=== PATIENT | male | born 1970 | race Two or more races ===

== ENCOUNTER 2025-06-17 17:45 | Emergency (ER) | payer MEDICAID, SELFPAY ==
[2025-06-17 18:05] VITALS: BP 148/85; PULSE 85; RESP 16; TEMP 37.1; O2SAT 99; BMI 28.7
--- NOTE | 2025-06-17 18:37 | XR_ITS ---
Examination: CT lumbar spine., without contrast. 2-D sagittal reconstructions. 2-D coronal reconstructions. 3-D reconstructions. Date and time of exam: June 17, 2025, 1852 hrs. Indication: Back pain 3 days. CTDI: vol (mGy):18.5. DLP: (mGycm):535. Technique: Multiple 1.25 mm axial sections of the lumbar spine without intravenous contrast. have been obtained. 2-D sagittal and coronal reconstructions have been obtained. 3-D reconstructions have been obtained. Low dose protocols were performed. One or more of the following dose reduction techniques were used; automated exposure control, adjustment of the mA and/or KV according to patient size, use of iterative reconstruction technique. Findings: Prominent cortical bone destruction involving contiguous margins L4-L5, L5-S1 with diffuse abnormal sclerosis involving the entire L5 vertebral body Large soft tissue mass surrounding both the L4-L5 and S1 vertebral bodies extending both anterior and posterior The soft tissue mass impinges upon the thecal sac only from the L4 to the S1 level The appearance is consistent with prominent osteomyelitis discitis at these levels No pathologic fracture Grade 1 spondylolisthesis L4 on L5 Impression: Osteomyelitis discitis L4-L5, L5-S1 Recommend MRI lumbar spine follow-up pre and postcontrast
--- NOTE | 2025-06-17 18:47 | XR_ITS ---
Examination: CT chest, without intravenous contrast. CT abdomen, without intravenous contrast. CT pelvis, without intravenous contrast. 2-D sagittal and coronal reconstructions. 3-D reconstructions. Date and time of exam:June 17, 2025, 1852 hrs. Indications: Chest pain back pain beginning 3 days ago CTDI vol (mgy) 7.09. DLP (MGycm)500 Technique: Multiple CT images, 3.0 mm slice thickness, obtained chest, abdomen, pelvis, with the high-resolution 64 slice scanner.. Sagittal and coronal 2-D reconstructions are obtained. 3-D reconstructions Low dose protocols were performed. One or more of the following dose reduction techniques were used; automated exposure control, adjustment of the mA and/or KV according to patient size, use of iterative reconstruction technique. Findings: No thoracic aortic aneurysm dilatation Pulmonary artery segments are not enlarged. Heavy calcification left anterior descending coronary artery. Trace pericardial thickening. No paratracheal tracheobronchial or bronchopulmonary adenopathy. Small focus of pneumonia versus atelectasis in the right middle lobe No liver lesion or intrahepatic biliary tract dilatation Calcification of the wall the gallbladder, gallbladder wall appears mildly thickened No pancreatic or adrenal mass 3.5 cm lower pole right renal cyst 2 mm 1 mm upper pole left renal calculi, hydronephrosis or ureteral calculi Abdominal aorta is not enlarged. No bowel obstruction 23 mm fat-containing umbilical hernia Normal appendix Intact urinary bladder Mild prostatomegaly Marked cortical bone destruction involving contiguous margins L4-L5, L5-S1 with prominent soft tissue mass surrounding these vertebral bodies Impression: Small focus of pneumonia versus atelectasis in the right middle lobe, clinical correlation advised Recommend hepatobiliary sonography to assess the thickened gallbladder wall with calcification in the wall of gallbladder Nonobstructing left renal calculi Normal appendix Prominent osteomyelitis discitis involving L4, L5 and S1, recommend MRI lumbar spine follow-up pre and postcontrast
--- NOTE | 2025-06-17 18:47 | PD.EDBACK ---
ED Back Injury Pain RME/HPI General Chief Complaint: Back Pain/Injury Stated Complaint: BACK PAIN 06/18 Time Seen by Provider: 06/17/25 18:37 Arrival date/time: 06/17/25 17:45 54M with no significant PMH presents to ED with low back pain after he's been lifting something heavy at work. Patient denies fall/trauma, but possible dysuria/hematuria. Patient also notes his ankles are swollen but denies SOB. Limitations: no limitations Related Data Previous Rx's ?Medication ?Instructions ?Recorded ibuprofen 800 mg tablet 800 mg PO Q8H PRN pain #30 tabs 04/12/21 tamsulosin 0.4 mg capsule (Flomax) 0.4 mg PO QDAY #5 caps 04/12/21 Allergies Allergy/AdvReac Type Severity Reaction Status Date / Time No Known Allergies Allergy Verified 06/17/25 17:47 Review of Systems Review of Systems Systems Reviewed: All systems reviewed, normal except as documented Cardiovascular Cardiovascular: Reports system reviewed and no additional complaints, except as documented and Denies chest pain Genitourinary Genitourinary: Reports as per HPI and Reports dysuria Musculoskeletal Musculoskeletal: Reports as per HPI and Reports back pain Integumentary/Breasts Skin/Breast: Reports as per HPI and Reports skin swelling Past Medical History Past Medical History CARDIAC: Negative Congestive Heart Failure RESPIRATORY: Negative Chronic Obstructive Pulmonary Disease (COPD) GENITOURINARY: Negative Renal Disease ENDOCRINE: Negative Diabetes Mellitus Type 1 or Diabetes Mellitus Type 2 Social History SMOKING STATUS: Never smoker ED Exam General Limitations: Present no limitations General appearance: Present alert and in no apparent distress Head Head exam: Present atraumatic Neck Neck exam: Present normal inspection, full ROM and trachea midline Chest Chest inspection: Present normal inspection and symmetric chest wall rise Expanded Lower Extremity Exam Ankle exam: Present full ROM and swelling Back Exam Back exam: Absent full ROM or tenderness Neurological Exam Neurological exam: Present alert, oriented X3 and CN II-XII intact Psychiatric Psychiatric exam: Present normal affect and normal mood Skin Skin exam: Present warm, dry, intact and normal color Course Quality Measures none Orders Category Date Time Status Bedside COVID-19 Antigen Test NOW Care 06/17/25 20:56 Active COVID-19 Screening Questionnaire NOW Care 06/17/25 20:29 Active Decision to Admit X1 Care 06/17/25 20:29 Completed Macdonald [Urinary Catheter] NOW Care 06/18/25 14:38 Active Insert IV NOW Care 06/17/25 20:29 Active MRI Screening NOW Care 06/17/25 21:01 Active Referral - Electric Distribution Engineer Stat Cons 06/18/25 11:[address] chest abdomen pelvis wo Stat Exams 06/17/25 18:[address] lumbar spine wo con Stat Exams 06/17/25 18:37 Completed MR lumbar spine wo/w con Stat Exams 06/18/25 Completed Amylase Stat Lab 06/17/25 19:13 Completed BMP [Basic Metabolic Panel] Stat Lab 06/18/25 00:09 Completed BNP [B-Type Natriuretic Peptide] Stat Lab 06/17/25 19:13 Completed Blood Culture (Lab) Stat Lab 06/17/25 21:12 Received CBC Stat Lab 06/17/25 19:13 Completed CMP [Comprehensive Metabolic Panel] Stat Lab 06/17/25 19:13 Completed CRP [C-Reactive Protein] Stat Lab 06/18/25 00:40 Completed Drug Screen,Urine Stat Lab 06/17/25 19:10 Completed ESR [Sed Rate (ESR)] Stat Lab 06/18/25 00:40 Completed Lactate (Lactic Acid) Stat Lab 06/18/25 00:40 Completed Procalcitonin Stat Lab 06/18/25 00:40 Completed Troponin I Stat Lab 06/17/25 19:13 Completed Urinalysis, C/S if Indicated Stat Lab 06/17/25 19:10 Completed Acetaminophen Ivpb [Ofirmev Inj] Med 06/18/25 11:55 Discontinued 1,000 mg in 100 ml IV NOW CIPROFLOXACIN/D5w 400 MG IVPB [Cipro Ivpb] Med 06/17/25 21:06 Active 400 mg in 200 ml IV Q12HR HYDROmorphone INJ [Dilaudid Inj] Med 06/18/25 11:54 Discontinued 1 mg IVP X1 ONE Morphine Oral LIQUID Med 06/17/25 18:37 Discontinued 5 mg PO X1 ONE Morphine* Inj Med 06/18/25 09:21 Discontinued 4 mg IVP X1 ONE Morphine* Inj Med 06/17/25 23:52 Active 5 mg IVP Q6H PRN Ondansetron Inj [Zofran Inj] Med 06/17/25 23:52 Active 4 mg IV Q6H PRN Ringers Lactated 1000 ml [Lactated Ringers] 1,000 ml Med 06/18/25 00:36 Discontinued IV 125 mls/hr Sodium Chloride 0.9% 1000 ml [Ns] 1,000 ml Med 06/17/25 22:05 Discontinued IV 500 mls/hr Sodium Chloride 0.9% 1000 ml [Ns] 1,000 ml Med 06/17/25 21:00 Discontinued IV 999 mls/hr Vancomycin Inj 2,000 mg Med 06/17/25 21:00 Discontinued Sodium Chloride 0.9% 500 ml [Ns] 500 ml IV X1 metroNIDAZOLE/NS 500 MG IVPB [Flagyl 500 mg IV] Med 06/18/25 09:22 Discontinued 500 mg in 100 ml IV X1 Vital Signs Vital signs: Vital Signs Temperature 98.8 F 06/17/25 18:05 Pulse Rate 85 06/17/25 18:05 Respiratory Rate 16 06/17/25 18:05 Blood Pressure 148/85 H 06/17/25 18:05 Pulse Oximetry (%) 99 06/17/25 18:05 Oxygen Delivery Method Room Air 06/17/25 18:05 O2 at 99% on RA and WNLs Back Pain / Injury MDM Narrative MDM Narrative:: 54M with no significant PMH presents to ED with low back pain after he's been lifting something heavy at work. Patient denies fall/trauma, but possible dysuria/hematuria. Patient also notes his ankles are swollen but denies SOB. Patient denies bowel/bladder incontinence and saddle anesthesia. Physical exam reveals no back tenderness. Pain is with ROM, which is limited. Some ankle swelling, but normal WOB. Patient is able to lift both legs while lyign down. Patient is afebrile, alert, but appears to be in pain. CT reveals lumbar discitis w/ surrounding soft tissue swelling. Moderate leukocytosis. CMP remarkable for Cr 1.9. Meth positive. BNP/trop neg. ESR/CRP elevated. Procal/lactate normal. Repeat BMP showed Cr of 1.7. Spoke to IM Resident who reports to Dr. Castro, who wants MRI prior to admission b/c if abscess, may need to transfer. Care signed out to Dr. Summers pending MRI and dispo. Eventually, patient found to have small epidural abscess and was transferred to [facility]. Patient data External records reviewed:: [facility] previous records Clinical information provided by:: patient Social determinants that could affect healthcare access:: none Patient has the following chronic illnesses:: none How is presenting disease/condition affected by chronic disease/condition?: no chronic disease Evaluation data The following diagnostics were reviewed and interpreted by me:: lab results and radiology exam(s) Lab and/or radiology exams considered but not ordered:: ordered Interpretation Summary: above Medications / Prescriptions Medications or Prescriptions considered but not ordered:: ordered Medication administrations:: Medication Administration History Ciprofloxacin/Dextrose (Cipro Ivpb) 400 mg in 200 mls @ 200 mls/hr IV Q12HR GÉNESIS Stop: 06/24/25 21:05 Last Infusion: 06/18/25 10:31 Dose: Infused Documented By: Admin: 06/18/25 09:31 Dose: 200 mls/hr Documented By: Infusion: 06/17/25 22:33 Dose: Infused Documented By: Admin: 06/17/25 21:23 Dose: 200 mls/hr Documented By: SUELLEN Morphine Sulfate (Morphine Sulf Inj 4 Mg/Ml Vial) 5 mg IVP Q6H PRN PRN Reason: PAIN 1-10 Last Admin: 06/18/25 00:04 Dose: 5 mg Documented By: SUELLEN Ondansetron HCl (Ondansetron Inj 2 Mg/Ml Inj 2 Ml) 4 mg IV Q6H PRN; Protocol PRN Reason: nausea and vomiting Stop: 07/17/25 23:44 Discontinued Medications Hydromorphone HCl (Hydromorphone Inj 2 Mg/Ml Vial) 1 mg IVP X1 ONE Stop: 06/18/25 11:55 Last Admin: 06/18/25 12:25 Dose: 1 mg Documented By: JEANE Sodium Chloride (Ns) 1,000 mls @ 999 mls/hr IV .Q1H1M ONE Stop: 06/17/25 22:00 Last Infusion: 06/17/25 22:34 Dose: Infused Documented By: Admin: 06/17/25 21:15 Dose: 999 mls/hr Documented By: SUELLEN Vancomycin HCl 2,000 mg/ (Sodium Chloride) 500 mls @ 150 mls/hr IV X1 ONE Stop: 06/18/25 00:19 Last Infusion: 06/18/25 01:54 Dose: Infused Documented By: Admin: 06/17/25 22:34 Dose: 150 mls/hr Documented By: BRI Sodium Chloride (Ns) 1,000 mls @ 500 mls/hr IV .Q2H ONE Stop: 06/18/25 00:04 Last Infusion: 06/18/25 00:36 Dose: Infused Documented By: Admin: 06/17/25 22:36 Dose: 500 mls/hr Documented By: BRI Lactated Ringer's (Lactated Ringers) 1,000 mls @ 125 mls/hr IV .Q8H ONE Stop: 06/18/25 08:35 Last Infusion: 06/18/25 09:20 Dose: Infused Documented By: Admin: 06/18/25 01:20 Dose: 125 mls/hr Documented By: SUELLEN Metronidazole (Flagyl 500 Mg Iv) 500 mg in 100 mls @ 100 mls/hr IV X1 ONE Stop: 06/18/25 10:21 Last Infusion: 06/18/25 12:03 Dose: Infused Documented By: Admin: 06/18/25 11:03 Dose: 100 mls/hr Documented By: JEANE Acetaminophen (Ofirmev Inj) 1,000 mg in 100 mls @ 250 mls/hr IV NOW ONE Stop: 06/18/25 12:18 Last Infusion: 06/18/25 12:50 Dose: Infused Documented By: Admin: 06/18/25 12:26 Dose: 250 mls/hr Documented By: TM Morphine Sulfate (Morphine Sulf Liqd 10 Mg/5 Ml Udc) 5 mg PO X1 ONE Stop: 06/17/25 18:38 Last Admin: 06/17/25 19:10 Dose: 5 mg Documented By: OA Morphine Sulfate (Morphine Sulf Inj 4 Mg/Ml Vial) 4 mg IVP X1 ONE Stop: 06/18/25 09:22 Last Admin: 06/18/25 09:25 Dose: 4 mg Documented By: TM above Consultations Consultation(s) initiated? (list below): Yes Diagnosis Differential diagnosis back pain/injury: lumbar radiculopathy, sciatica, strain of lumbar region, renal colic, pyelonephritis, thoracic back pain, AAA, discitis and other (epidural abscess) Most likely diagnosis given after review of the tests above:: discitis and epidural abscess Admission Indicated Admission indicated?: indicated Admission Request Was there a request for admission?: Yes Admission Attestation Admission request attestation: Discussed case with [Dr. Castro] from Hospitalist service regarding admission. Discussed patients ED course, exam findings, labs, and radiology results. The Hospitalist [declines] to accept the patient for admission. Disposition Plan Disposition Plan: Transfer Discharge Plan Plan Patient Disposition: [facility] Pt Being Transferred to: [facility] Service Needed for Transfer: Neurosurgery Prescriptions/Referrals Prescriptions/Med Rec: No Action tamsulosin [Flomax] 0.4 mg capsule 0.4 mg PO QDAY Qty: 5 0RF ibuprofen 800 mg tablet 800 mg PO Q8H PRN (Reason: pain) Qty: 30 0RF Referrals: Zack Adams PA-C [Primary Care Provider] - In 1 week Problem List Clinical Impression: Osteomyelitis of lumbar spine, Discitis of lumbar region, Abscess in epidural space of lumbar spine, Renal insufficiency, Methamphetamine abuse Patient/Caregiver Discharge Instructions Print Language: Amharic Stand Alone Forms: Kristi Award Info., Patient Portal Info Letter
[2025-06-17] MEDS: MORPHINE SULF LIQD 10 MG/5 ML UDC 5 MG PO (19:10)
[2025-06-17 19:23] LABS: Collection Type, Urine Clean Catch
[2025-06-17 19:34] LABS: Basophils # (Auto) 0.1 Thou/mm3 (0.0-0.2); Basophils % (Auto) 0 % (0-2.5); Eosinophils # (Auto) 0.1 Thou/mm3 (0.0-0.5); Eosinophils % (Auto) 1 % (0-10); Hematocrit 34.8 % (41.0-53.0); Hemoglobin 11.1 g/dL (13.5-16.0); Immature Granulocytes Auto 0.05 Thou/mm3 (0.00-0.00); Lymphocytes # (Auto) 2.4 Thou/mm3 (1.0-4.8); Lymphocytes % (Auto) 16 % (10-50); Mean Corpuscular HGB Conc 31.9 g/dl (31.0-37.0); Mean Corpuscular Hemoglobin 26.8 pg (25.0-35.0); Mean Corpuscular Volume 84 fL (80-100); Monocytes # (Auto) 1.5 Thou/mm3 (0.0-0.8); Monocytes % (Auto) 10 % (0-12); Neutrophils # (Auto) 11.2 Thou/mm3 (1.8-7.7); Neutrophils % (Auto) 73 % (37-80); Nucleated Red Blood Cell # 0.00 Thou/mm3 (0.00-0.00); Nucleated Red Blood Cell % 0 /100 WBC (0); Platelet Count 353 Thou/mm3 (140-440); RDW Standard Deviation 42.9 fL (35.1-43.9); Red Blood Count 4.14 Miln/mm3 (4.50-5.90); White Blood Count 15.3 Thou/mm3 (3.8-10.6)
[2025-06-17 19:41] LABS: B-Type Natriuretic Peptide 33 pg/mL (0-100)
[2025-06-17 19:42] LABS: Alanine Aminotransferase 23 U/L (10-49); Albumin, Serum 4.4 gm/dL (3.5-5.0); Albumin/Globulin Ratio 1.3 (1.2-2.2); Alkaline Phosphatase 110 U/L (46-116); Amylase 129 U/L (30-118); Anion Gap 12 (7-16); Aspartate Amino Transferase 23 U/L (0-34); BUN/Creatinine Ratio 10 Ratio (12-20); Bilirubin,Total 0.7 mg/dL (0.3-1.2); Blood Urea Nitrogen 19 mg/dL (9-23); Calcium 9.7 mg/dL (8.3-10.6); Calcium (Corrected) 9.7 mg/dL (8.5-10.1); Carbon Dioxide 27.4 mMol/L (20.0-31.0); Chloride 99 mMol/L (98-107); Creatinine (Component) 1.9 mg/dL (0.6-1.3); Estimated Creatinine Clearance 39.0 mL/min (>60); Globulin 3.3 gm/dL (2.3-3.5); Glucose 114 mg/dL (74-106); Osmolality,Calculated 278 (275-295); Potassium 4.3 mMol/L (3.4-5.1); Sodium 138 mMol/L (136-145); Total Protein 7.7 gm/dL (5.7-8.2); Troponin I < 0.020 ng/mL (0.0-0.045); eGFR 41 See Note
[2025-06-17 20:05] LABS: Amphetamine/Methamp Scrn,U Positive (Negative); Barbiturate Screen,Urine Negative (Negative); Benzodiazepines Screen,Urine Negative (Negative); Benzoylecgonine Screen, Ur Negative (Negative); Fentanyl Screen,Urine Negative (Negative); Opiate Screen,Urine Negative (Negative); THC Screen,Urine Negative (Negative)
[2025-06-17 20:10] LABS: Bilirubin,Urine Negative (Negative); Blood,Urine Trace (Negative); Clarity,Urine Clear (Clear/Hazy); Color,Urine Yellow (Lt Yel-Yel); Culture Indicated,Urine Not Indicated; Glucose, Urine Negative (Negative); Hyaline Casts,Urine < 1 /hpf (0-1); Ketones,Urine Negative (Negative); Leukocyte Esterase,Urine Negative (Negative); Nitrite,Urine Negative (Negative); PH,Urine 6.0 (5.0-7.0); Protein,Urine 1+ (Neg - Trace); RBC,Urine 2 /hpf (0-3); Specific Gravity,Urine 1.023 (1.001-1.035); Squamous Epithelial Cell,Urine 1 /hpf (0-5); Urobilinogen,Urine Negative mg/dL (0.0-1.0); WBC,Urine 5 /hpf (0-5)
[2025-06-17 20:12] LABS: Sperm,Urine Present
[2025-06-17 20:56] VITALS: BP 175/86; PULSE 85; RESP 19; TEMP 37.2; O2SAT 98
[2025-06-17] MEDS: SODIUM CHLORIDE 0.9% 1000 ML 1,000 ML 999 ML IV (21:15)
[2025-06-17] MEDS: CIPROFLOXACIN/D5w 400 MG IVPB 400 MG/200 ML BAG 200 MG IV (21:23)
[2025-06-17 22:00] VITALS: BP 155/84; PULSE 83; RESP 18; TEMP 36.9; O2SAT 98
[2025-06-17] MEDS: Vancomycin Inj 2,000 MG in SODIUM CHLORIDE 0.9% 500 ML 500 ML 150 MG IV (22:34)
[2025-06-17] MEDS: SODIUM CHLORIDE 0.9% 1000 ML 1,000 ML 500 ML IV (22:36)
[2025-06-17 23:44] VITALS: BP 137/69; PULSE 79; RESP 18; TEMP 36.9; O2SAT 98
[2025-06-18] VITALS (7 sets, daily range): BP systolic 109–164; BP diastolic 70–84; PULSE 69–83; RESP 15–24; TEMP 36.5–37.7; O2SAT 96–98
--- NOTE | 2025-06-18 | XR_ITS ---
Examination: MRI lumbar spine, without intravenous contrast. MRI lumbar spine , with intravenous contrast. Exam date and time: June 18, 2025, 0959 hours INDICATIONS: Low back pain this week, osteomyelitis discitis L4-L5, L5-S1 CT lumbar spine study yesterday Technique: Multiple axial, sagittal and coronal images of the lumbar spine have been obtained with the Siemens high-resolution 1.5 Areli MRI scanner. Images obtained included T2 weighted fat suppressed sagittal sections, TR 3500, TE 46, T2 weighted coronal fat suppressed images, TR 3050, TE 84, T2-weighted transverse fat suppressed images, TR 30-60, TE 63, proton density transverse images, TR 4720, TE 46, and T1 weighted coronal images, TR 560, TE 13. Axial, sagittal and coronal images are obtained post intravenous injection 5 cc gadolinium. Findings: Grade 1 anterolisthesis L4 on L5 Advanced disc narrowing L4-L5, L5-S1 Postcontrast images demonstrate mild enhancement of the L4 vertebral body and L4-L5 disc More prominent enhancement involving the L5-S1 disc and upper margin of the first sacral segment Enhancing epidural material, sagittal image 8, partially surrounding the thecal sac, the epidural material measuring up to 12 mm in thickness posterior to the L5 vertebral body consistent with epidural abscess Soft tissue mass surrounding the L5 and L4 vertebral bodies IMPRESSION: Discitis L4-L5 Osteomyelitis discitis L5-S1 Epidural abscess formation surrounding the thecal sac at the L5 level
[2025-06-18] MEDS: MORPHINE SULF INJ 4 MG/ML VIAL 5 MG IVP (00:04)
[2025-06-18 00:33] LABS: Anion Gap 9 (7-16); BUN/Creatinine Ratio 9 Ratio (12-20); Blood Urea Nitrogen 15 mg/dL (9-23); Calcium 8.7 mg/dL (8.3-10.6); Carbon Dioxide 28.0 mMol/L (20.0-31.0); Chloride 105 mMol/L (98-107); Creatinine (Component) 1.7 mg/dL (0.6-1.3); Estimated Creatinine Clearance 43.6 mL/min (>60); Glucose 108 mg/dL (74-106); Osmolality,Calculated 284 (275-295); Potassium 4.3 mMol/L (3.4-5.1); Sodium 142 mMol/L (136-145); eGFR 47 See Note
[2025-06-18 00:47] LABS: Lactate (Lactic Acid) 0.6 mMol/L (0.4-2.0)
[2025-06-18 00:55] LABS: Sed Rate (ESR) 44 mm/hr (0-20)
[2025-06-18 01:16] LABS: C-Reactive Protein 6.4 mg/dL (0.0-0.9); Procalcitonin 0.14 ng/ml (0.0-0.49)
[2025-06-18] MEDS: RINGERS LACTATED 1000 ML 1,000 ML 125 ML IV (01:20)
--- NOTE | 2025-06-18 07:53 | PC.NURSE ---
Spoke w/MD Summers about pts MRI. This RN received a call from MRI to inform pts CT to high can only do MRI w/o contrast
--- NOTE | 2025-06-18 08:36 | PD.EDADDENDU ---
Emergency Room Addendum Addendum Narrative: This section includes all my notes and documentations, including HPI, PE, and ED course. Quique Summers MD ? 0600: Care assumed from Dr. Che, the previous shift emergency physician. Past medical, surgical, social and family history reviewed. Vitals and home medications reviewed. I will assume the care of the patient at this time, pending MRI and final disposition. Please refer to the emergency department record for history and examination from initial visit.?The following addendum documentation note is intended to reflect any pending information, findings, or radiology results not included in the patient?s initial chart. I reviewed all diagnostic test results: My review of the lumbar spine CT report is: Bony destruction of L5 and S1 My review of the chest/abdomen/pelvis CT report is: Grossly normal My review of the lubar spine MRI report is: Bony destruction of L5 and S1 Blood tests and urine test: Leukocytosis 15.3, creatinine 1.7, eGFR 47 Covid: Negative 0820: I spoke with radiologist Dr. Zhang regarding the creatinine and eGFR levels. Reports we can proceed imaging studied with con. 0825: I spoke with respiratory support technician and made aware of Dr. Smith's clearance 1145: I spoke with transfer nurse at [facility]. Discussed patients PMHx, HPI, ED course, exam findings, labs, and radiology results. 1417: [facility] has accepted the patient for transfer, ER to ER. At this point, diagnoses include: Osteomyelitis of L5 S1, discitis L4-L5, lumbar epidural abscess, renal insufficiency, methamphetamine abuse ? Treatment here included: Morphine, IV fluids, Ciprofloxacin, Vancomycin, Reglan, Dilaudid, Tylenol 1800: Patient signed out to Dr. Che pending transfer to [facility].
[2025-06-18] MEDS: MORPHINE SULF INJ 4 MG/ML VIAL IVP (09:25)
[2025-06-18] MEDS: CIPROFLOXACIN/D5w 400 MG IVPB 400 MG/200 ML BAG 200 MG IV (09:31)
[2025-06-18] MEDS: metroNIDAZOLE/NS 500 MG IVPB 500 MG/100 ML BAG 100 MG IV (11:03)
[2025-06-18] MEDS: HYDROmorphone INJ 2 MG/ML VIAL 1 MG IVP (12:25)
[2025-06-18] MEDS: ACETAMINOPHEN IVPB 1,000 MG/100 ML VIAL 250 MG IV (12:26)
--- NOTE | 2025-06-18 13:31 | PC.CM ---
Addendum entered by Erin Pandya RN 06/18/25 16:44: cupola liner time with [facility] set for 1930. I updated the charge nurse. Addendum entered by Erin Pandya RN 06/18/25 15:46: Patient accepted to [facility] with Dr. Aragon ED to ED. The number to call and give report [phone]. I will set up transport. I handed packet to ED charge nurse. Original Note: 7062 I spoke to Pam with the transfer center at [facility]. She wanted to speak to the doctor. I did a conference call with Dr. Summers and Pam. Pam took information from Dr. Summers and she states she will have her doctor review the paperwork that was sent and have her doctor review the images that were pushed over. 1250 I initiated a transfer with [facility] and I faxed over images and started packet. I made a CD. 1230 I received a referral to transfer patient for neurosurgery. Patient has a epidural abscess at L5.
== END 2025-06-18 19:47 | disposition short-term general hospital (02) ==
PROVIDERS: Physician Assistant; Emergency Provider Emergency Medicine; PCP Physician Assistant
DX: M46.26 Osteomyelitis of vertebra, lumbar region (principal); N28.9 Disorder of kidney and ureter, unspecified; F15.10 Other stimulant abuse, uncomplicated; G06.2 Extradural and subdural abscess, unspecified
CPT/HCPCS: 36415; 71250; 72131; 72158; 74176; 80048; 80053; 80307; 81001; 82150; 83605; 83690; 83880; 84145; 84484; 85025; 85652; 86140; 87040; 87811; 96361; 96365; 96366; 96375; 96376; 99284; A4314; A9577; J0131; J0744; J1171; J2270; J3373; J3490; J7030; J7120; J7999; A9270; J1836

== ENCOUNTER 2025-06-27 15:21 | Observation (INO) | payer MEDICAID, SELFPAY ==
[2025-06-26 18:15] VITALS: BMI 26.6
[2025-06-26 18:20] LABS: Basophils # (Auto) 0.1 Thou/mm3 (0.0-0.2); Basophils % (Auto) 1 % (0-2.5); Eosinophils # (Auto) 0.2 Thou/mm3 (0.0-0.5); Eosinophils % (Auto) 2 % (0-10); Hematocrit 29.8 % (41.0-53.0); Hemoglobin 9.5 g/dL (13.5-16.0); Immature Granulocytes Auto 0.04 Thou/mm3 (0.00-0.00); Lymphocytes # (Auto) 2.3 Thou/mm3 (1.0-4.8); Lymphocytes % (Auto) 23 % (10-50); Mean Corpuscular HGB Conc 31.9 g/dl (31.0-37.0); Mean Corpuscular Hemoglobin 26.9 pg (25.0-35.0); Mean Corpuscular Volume 84 fL (80-100); Monocytes # (Auto) 0.8 Thou/mm3 (0.0-0.8); Monocytes % (Auto) 8 % (0-12); Neutrophils # (Auto) 6.6 Thou/mm3 (1.8-7.7); Neutrophils % (Auto) 66 % (37-80); Nucleated Red Blood Cell # 0.00 Thou/mm3 (0.00-0.00); Nucleated Red Blood Cell % 0 /100 WBC (0); Platelet Count 402 Thou/mm3 (140-440); RDW Standard Deviation 43.0 fL (35.1-43.9); Red Blood Count 3.53 Miln/mm3 (4.50-5.90); White Blood Count 10.0 Thou/mm3 (3.8-10.6)
--- NOTE | 2025-06-26 18:22 | PD.RESHP ---
Documentation for date of: 06/26/25 HPI History of Present Illness Chief complaint: Back pain History of present illness: 54 year old male with past medical history of chronic back pain, hypertension, CKD, BPH, polysubstance use disorder presenting to [facility] after he was transferred from the ED to [facility] for epidural abscess and discitis of the L5-S1 region. Patient is transferring back from tertiary center as he is currently stable. There was no IR guided drainage of the abscess as the following was unsuccessful; furthermore, patient remained afebrile without neurological deficits during stay. [facility] ID provider was also consulted for antibiotic regimen; however, recommended against the following as the patient remained asymptomatic during stay. There was some concern for TB secondary to Quantiferon and xray findings; however, diagnosis of latent TB was made as the patient's AFB send outs were negative. Exam Narrative Exam Physical Exam: GENERAL: Awake, answering questions appropriately, appears stated age HEENT: NC/AT. Moist mucosa. PERRLA/EOMI. CARDIO: Heart RRR, no obvious murmurs, no JVD. PULM: No coughing or visible SOB. Lungs CTA B/L. GI: Abdomen soft, NT/ND, +BS. SKIN/MSK/EXT: No wounds/discoloration/rashes/edema/amputations. +Pedal pulses present B/L. NEURO: Oriented x3, Moves extremities x4, no focal neurological deficits. Results: Labs 06/27/25 04:37 06/27/25 04:37 Quality Measures Quality Measures VTE prophylaxis Medications Home Medications and Allergies Home Medications ?Medication ?Instructions ?Recorded ?Confirmed ?Type aspirin 81 mg tablet,delayed 81 mg PO DAILY 06/26/25 06/26/25 History release atorvastatin 20 mg tablet 20 mg PO DAILY 06/26/25 06/26/25 History cholecalciferol (vitamin D3) 125 125 mcg PO QDAY 06/26/25 06/26/25 History mcg (5,000 unit) capsule hydralazine 10 mg tablet 10 mg PO TID 06/26/25 06/26/25 History nifedipine 60 mg tablet,extended 60 mg PO DAILY 06/26/25 06/26/25 History release 24 hr Allergies Allergy/AdvReac Type Severity Reaction Status Date / Time No Known Allergies Allergy Verified 06/17/25 17:47 Visit Medications Acetaminophen (Acetaminophen 325 Mg Tablet) 650 mg PO Q6H PRN PRN Reason: Pain 1-3 and/or Fever >100.1 Stop: 07/26/25 18:17 Hydrocodone Bitart/Acetaminophen (Hydrocodone/Apap 5/325 Tablet) 1 tab PO Q6HR PRN PRN Reason: Pain 4-6 Stop: 07/01/25 18:17 Hydrocodone Bitart/Acetaminophen (Hydrocodone/Apap 10/325 Tab) 1 tab PO Q6HR PRN PRN Reason: Pain 7-10 Stop: 07/01/25 18:17 Heparin Sodium (Porcine) (Heparin Sod Inj 5000 Unit/Ml Vial) 5,000 unit SC Q12HR GÉNESIS Stop: 07/10/25 20:59 Hydralazine HCl (Hydralazine Hcl 10 Mg Tablet) 10 mg PO TID GÉNESIS Stop: 07/26/25 21:59 Nifedipine (Nifedipine Xl 30 Mg Tabcr) 60 mg PO QDAY GÉNESIS Stop: 07/27/25 08:59 Ondansetron HCl (Ondansetron Inj 2 Mg/Ml Inj 2 Ml) 4 mg IVP Q6H PRN; Protocol PRN Reason: NAUSEA OR VOMITING Stop: 07/26/25 18:17 Sennosides (Senna Tablet) 1 tab PO QDAY GÉNESIS; Protocol Stop: 07/27/25 08:59 Assessment & Plan Plan 54 year old male with past medical history of chronic back pain, hypertension, CKD, BPH, polysubstance use disorder transferring back from [facility] following diagnosis of L5-S1 discitis and abscess. #Osteomyelitis of lumbar spine #Psoas muscle abscess? MR of spine on 06/22 showed extensive circumfrential epidural enhancement; anterior paracentral space There is also mention of psoas muscle abscess Patient remained aferbile and without leukocytosis at [facility], CRP 39 and ESR of 100 Negative for HIV, hepatitis panel and blood cultures Disc biopsy on 06/19 was negative for any growth, pathology read: focal necrosis with no acute inflammation Neurosurgery was consulted at [facility] but due to non-focal exam no surgery was planned ID was consulted at [facility] which did not recommend antibiotic regimen Pending orders for karius test , cocci and 16s/18sRNA ordered as per ID recommendations Plan: Physical therapy consultation Monitor for any changes in vitals, leukocytosis or neurological findings including (urinary/fecal incontinence, parasthesias, sphincter tone or other sensory/motor dysfunctions) #TB, latent As noted by positive Quantiferon and Xray findings Send out AFBs were negative Plan: Monitor for any changes #CKD stage IIIb Likely secondary to hypertensive nephropathy Plan: Monitor kidney function with morning labs Avoid nephrotoxic agents Renally dose medications as warranted Could benefit from outpatient nephrology #Polysubstance-use disorder Drug screen positive for meth at [facility] Plan: [place] on cessation commissioner of relocation services consultation #Primary hypertension Patient on home Nifedipine 60mg and Hydralazine 10 mg TID Plan: Restarted home medications #Normocytic Anemia Likely secondary to chronic disease, CKD Ddx: HARLEY, Vitamin deficiency, less likely to be bone marrow disorder or hemolytic anemia Plan: Follow-up with morning iron panel and reticulocyte count Health Maintenance: Lines: PIV Diet: Cardiac Bowel: Senna GI prophylaxis: Not needed DVT prophylaxis: Hep subq Dispo: PT eval, home health Code: Full Patient seen and assessed with attending Dr. Toby Gonzalez DO PGY-2 Attending Provider Attestation/Addendum I have examined the patient, reviewed labs and imaging findings, discussed the case with the resident(s), and reviewed entered orders. I agree with the plan of care as outlined in this note, with these additional summaries/recommendations: After examination of the patient and review of the clinical data, I feel that this patient needs admission to the hospital for further treatment and evaluation. Dr. Toby MD
[2025-06-26 18:39] LABS: Alanine Aminotransferase 38 U/L (10-49); Albumin, Serum 3.9 gm/dL (3.5-5.0); Albumin/Globulin Ratio 1.2 (1.2-2.2); Alkaline Phosphatase 118 U/L (46-116); Anion Gap 9 (7-16); Aspartate Amino Transferase 26 U/L (0-34); BUN/Creatinine Ratio 13 Ratio (12-20); Bilirubin,Total 0.3 mg/dL (0.3-1.2); Blood Urea Nitrogen 19 mg/dL (9-23); Calcium 9.5 mg/dL (8.3-10.6); Calcium (Corrected) 9.6 mg/dL (8.5-10.1); Carbon Dioxide 27.1 mMol/L (20.0-31.0); Chloride 105 mMol/L (98-107); Creatinine (Component) 1.5 mg/dL (0.6-1.3); Globulin 3.2 gm/dL (2.3-3.5); Glucose 100 mg/dL (74-106); Osmolality,Calculated 283 (275-295); Potassium 4.3 mMol/L (3.4-5.1); Sodium 141 mMol/L (136-145); Total Protein 7.1 gm/dL (5.7-8.2); eGFR 54 See Note
[2025-06-26 20:00] VITALS: BP 129/88; PULSE 108; RESP 18; TEMP 36.7; O2SAT 98
[2025-06-26] MEDS: HEPARIN SOD INJ 5000 UNIT/ML VIAL SC (20:57)
[2025-06-26 21:00] VITALS: BP 129/88; PULSE 108
[2025-06-26] MEDS: HYDROcodone/APAP 5/325 TABLET 1 TAB PO (21:01)
[2025-06-27] VITALS (10 sets, daily range): BP systolic 128–164; BP diastolic 76–91; PULSE 66–82; RESP 16–20; TEMP 36.1–36.9; O2SAT 96–100
[2025-06-27 06:12] LABS: Basophils # (Auto) 0.1 Thou/mm3 (0.0-0.2); Basophils % (Auto) 1 % (0-2.5); Eosinophils # (Auto) 0.2 Thou/mm3 (0.0-0.5); Eosinophils % (Auto) 3 % (0-10); Hematocrit 31.0 % (41.0-53.0); Hemoglobin 9.8 g/dL (13.5-16.0); Immature Granulocytes Auto 0.04 Thou/mm3 (0.00-0.00); Immature Reticulocyte Fraction 17.9 % (2.3-13.4); Lymphocytes # (Auto) 2.4 Thou/mm3 (1.0-4.8); Lymphocytes % (Auto) 28 % (10-50); Mean Corpuscular HGB Conc 31.6 g/dl (31.0-37.0); Mean Corpuscular Hemoglobin 27.0 pg (25.0-35.0); Mean Corpuscular Volume 85 fL (80-100); Monocytes # (Auto) 0.7 Thou/mm3 (0.0-0.8); Monocytes % (Auto) 8 % (0-12); Neutrophils # (Auto) 5.3 Thou/mm3 (1.8-7.7); Neutrophils % (Auto) 60 % (37-80); Nucleated Red Blood Cell # 0.00 Thou/mm3 (0.00-0.00); Nucleated Red Blood Cell % 0 /100 WBC (0); Platelet Count 389 Thou/mm3 (140-440); RDW Standard Deviation 43.9 fL (35.1-43.9); Red Blood Count 3.63 Miln/mm3 (4.50-5.90); Reticulocyte % (Auto) 2.1 % (0.5-1.5); Reticulocyte Absolute Auto 76.2 Biln/L (25.0-75.0); Reticulocyte Hgb Content 28.1 pg (28.0-35.0); White Blood Count 8.8 Thou/mm3 (3.8-10.6)
[2025-06-27 06:31] LABS: Ferritin 82 ng/mL (10.5-307.3); Iron 30 mcg/dL (65-175); Percent Iron Saturation 10 % (20-55); Total Iron Binding Capacity 281 mcg/dL (250-425); Unsaturated Iron Binding 251 (225-295)
[2025-06-27 06:33] LABS: Alanine Aminotransferase 34 U/L (10-49); Albumin, Serum 4.0 gm/dL (3.5-5.0); Albumin/Globulin Ratio 1.4 (1.2-2.2); Alkaline Phosphatase 116 U/L (46-116); Anion Gap 8 (7-16); Aspartate Amino Transferase 22 U/L (0-34); BUN/Creatinine Ratio 14 Ratio (12-20); Bilirubin,Total 0.3 mg/dL (0.3-1.2); Blood Urea Nitrogen 21 mg/dL (9-23); Calcium 9.8 mg/dL (8.3-10.6); Calcium (Corrected) 9.8 mg/dL (8.5-10.1); Carbon Dioxide 28.6 mMol/L (20.0-31.0); Chloride 106 mMol/L (98-107); Creatinine (Component) 1.5 mg/dL (0.6-1.3); Globulin 2.9 gm/dL (2.3-3.5); Glucose 88 mg/dL (74-106); Osmolality,Calculated 286 (275-295); Potassium 4.4 mMol/L (3.4-5.1); Sodium 143 mMol/L (136-145); Total Protein 6.9 gm/dL (5.7-8.2); eGFR 54 See Note
[2025-06-27 06:46] LABS: Glucose Estimated Average 100 mg/dL (80-131); Hemoglobin A1C 5.1 % Hgb (4.8-6.0)
[2025-06-27] MEDS: NIFEdipine XL 30 MG TABCR 60 MG PO (08:23)
[2025-06-27] MEDS: HEPARIN SOD INJ 5000 UNIT/ML VIAL SC ×2 (08:24→20:30)
--- NOTE | 2025-06-27 11:00 | ESPR_ITS ---
<Statement entered by Kofi Gonzalez MD - 06/27/25 14:12> Patient seen and examined in hospital bed reporting back pain; he has been getting Benoit PRN every six hours. Unsure at this time whether or not patient's latent TB has been treated, there was no mention of it on the paperwork received when the patient transferred back to [facility]. Furthermore, transfer RN has been told to follow-up on results for a Karius test, 16s/18sRNA results. Reordered cocci serologies in-house and consulted infectious disease regarding both the latent TB and the L5-S1 discitis which has not been treated with antibiotics as per [facility] infectious disease recommendations. There is also mention of a psoas abscess on MRI report which could potentially be linked to TB infection. Will follow-up with ID recommendations and continue to monitor the patient for any acute changes. I have personally seen and examined the patient. I agree with the resident's assessment and plan as documented below. Kofi Gonzalez DO PGY-2 Internal Medicine - GME Documentation for date of: 06/27/25 Subjective Subjective Interval history: No acute events overnight. Reports back pain 2/10 but complaining of new left knee pain. Able to bear weight and ambulate without issues. Will follow up on karius test , cocci and 16s/18sRNA. Recommend outpatient evaluation of knee as well as outpatient follow up for latent TB treatment and HTN/CKD management. Evaluated by PT, patient is able to walk with FWW and independent with ADLs. Safe to discharge home tomorrow. Exam Vital Signs Temp Pulse Resp BP Pulse Ox O2 Del Method 97.8 F 71 16 164/91 H 98 Room Air 06/27/25 08:00 06/27/25 08:23 06/27/25 08:00 06/27/25 08:23 06/27/25 08:00 06/27/25 08:00 Narrative Exam Physical Exam General: Awake and in no acute distress. Conversational and non-toxic appearing. HEENT: Normocephalic, atraumatic, mucous membranes moist. Heart: Regular rate and rhythm, normal S1 and S2, no murmurs. Lungs: Clear to auscultation with no wheezing or crackles. Abdomen: Soft, nondistended, nontender, positive bowel sounds. No guarding or rebound tenderness. Neurologic: Alert and oriented x3, no gross neurological deficit, and patient able to move all 4 extremities. Extremities: No edema. Skin: No rash or ecchymoses. Objective Labs 06/28/25 05:08 06/28/25 05:08 Labs: Laboratory Results - last 24 hr 06/26/25 06/27/25 18:02 04:37 WBC 10.0 8.8 RBC 3.53 L 3.63 L Hgb 9.5 L 9.8 L Hct 29.8 L 31.0 L MCV 84 85 MCH 26.9 27.0 MCHC 31.9 31.6 RDW Std Deviation 43.0 43.9 Plt Count 402 D 389 Neut % (Auto) 66 60 Lymph % (Auto) 23 28 [place] % (Auto) 8 8 Eos % (Auto) 2 3 Baso % (Auto) 1 1 Neut # (Auto) 6.6 5.3 Lymph # (Auto) 2.3 2.4 [place] # (Auto) 0.8 0.7 Eos # (Auto) 0.2 0.2 Baso # (Auto) 0.1 0.1 Immature Gran # (Auto) 0.04 H 0.04 H Absolute Nucleated RBC 0.00 0.00 Immature Gran % 0 1 H Nucleated RBC % 0 0 Retic Count (auto) 2.1 H Absolute Retic 76.2 H Immature Retic Fraction 17.9 H Retic Hgb Content CHr 28.1 Sodium 141 143 Potassium 4.3 4.4 Chloride 105 106 Carbon Dioxide 27.1 28.6 Anion Gap 9 8 BUN 19 21 Creatinine 1.5 H 1.5 H Estim Creat Clear Calc Not Performed. Not Performed. eGFR 54 L 54 L BUN/Creatinine Ratio 13 14 Glucose [address] Glu mg/dL 100 Hemoglobin A1c 5.1 Calculated Osmolality 283 286 Calcium 9.5 9.8 Corrected Calcium 9.6 9.8 Iron 30 L TIBC 281 Iron Saturation 10 L Unsat Iron Binding 251 Ferritin 82 Total Bilirubin 0.3 0.3 AST 26 22 ALT 38 34 Alkaline Phosphatase 118 H 116 Total Protein 7.1 6.9 Albumin 3.9 4.0 Globulin 3.2 2.9 Albumin/Globulin Ratio 1.2 1.4 Quality Measures Quality Measures VTE prophylaxis Assessment & Plan Assessment Current Active Medications: Generic Name Dose Route Start Last Admin Trade Name Freq PRN Reason Stop Dose Admin Acetaminophen 650 mg 06/26/25 18:18 Acetaminophen 325 Mg Tablet PO 07/26/25 18:17 Q6H PRN Pain 1-3 and/or Fever >100.1 Hydrocodone Bitart/Acetaminophen 1 tab 06/26/25 18:18 06/26/25 21:01 Hydrocodone/Apap 5/325 Tablet PO 07/01/25 18:17 1 tab Q6HR PRN Administration Pain 4-6 Hydrocodone Bitart/Acetaminophen 1 tab 06/26/25 18:18 Hydrocodone/Apap 10/325 Tab PO 07/01/25 18:17 Q6HR PRN Pain 7-10 Heparin Sodium (Porcine) 5,000 unit 06/26/25 21:00 06/27/25 08:24 Heparin Sod Inj 5000 Unit/Ml Vial SC 07/10/25 20:59 5,000 unit Q12HR GÉNESIS Administration Hydralazine HCl 10 mg 06/26/25 22:00 06/27/25 05:36 Hydralazine Hcl 10 Mg Tablet PO 07/26/25 21:59 10 mg TID GÉNESIS Administration Nifedipine 60 mg 06/27/25 09:00 06/27/25 08:23 Nifedipine Xl 30 Mg Tabcr PO 07/27/25 08:59 60 mg QDAY GÉNESIS Administration Ondansetron HCl 4 mg 06/26/25 18:18 Ondansetron Inj 2 Mg/Ml Inj 2 Ml IVP 07/26/25 18:17 Q6H PRN NAUSEA OR VOMITING Protocol Sennosides 1 tab 06/27/25 09:00 06/27/25 08:23 Senna Tablet PO 07/27/25 08:59 1 tab QDAY GÉNESIS Administration Protocol Plan Patient is a 54 year old male with past medical history of chronic back pain, hypertension, CKD, BPH, polysubstance use disorder who transferred back from [facility] on 06/26 following diagnosis of L5-S1 discitis and abscess. #Osteomyelitis of lumbar spine MRI lumbar spine 06/18 at [facility] showed discitis L4-L5, osteomyelitis discitis L5- S1, epidural abscess formation surrounding the thecal sac at the L5 level. CRP and ESR were elevated. Patient was transferred to [facility] for abscess drainage. Per note, patient was started on antibiotics upon arrival. Disc biopsy on 06/19 was negative for any growth, pathology read: focal necrosis with no acute inflammation MR of spine on 06/22 showed extensive circumfrential epidural enhancement; anterior paracentral space, no psoas abscess visualized Patient remained afebrile and without leukocytosis at [facility], CRP 39 and ESR of 100 Negative for HIV, hepatitis panel and blood cultures Neurosurgery was consulted at [facility] but due to non-focal exam no surgery was planned ID was consulted at [facility] which recommended discontinuing antibiotic regimen. Plan: - Follow-up Karius test, cocci and 16s/18sRNA from [facility] ?Physical therapy evaluated: Patient independent with transfers and ambulation with four-wheel walker, safe to discharge home - CTM changes in vitals, leukocytosis or neurological findings including (urinary/fecal incontinence, parasthesias, sphincter tone or other sensory/motor dysfunctions) #Primary hypertension Patient on home Nifedipine 60mg and Hydralazine 10 mg TID Plan: - Continue home nifedipine and hydralazine #CKD stage IIIb Likely secondary to hypertensive nephropathy. Plan: - Monitor kidney function with morning labs ?Avoid nephrotoxic agents - Renally dose medications - Encouraged proper oral rehydration - Recommend outpatient follow up with manager contract #Normocytic Anemia Likely secondary to chronic disease, CKD Ddx: HARLEY, Vitamin deficiency, less likely to be bone marrow disorder or hemolytic anemia Iron and iron saturation low, likely HARLEY. Plan: - Outpatient iron supplementation #TB, latent Positive quantiferon, send out AFBs x3 were negative, CXR showed HIV negative. Patient denies known history of TB, denied any treatment. Plan: - Follow up outpatient for treatment with 3 month course of isoniazid and rifapentine (weekly doses) versus isoniazid 9 month course #Polysubstance-use disorder Drug screen positive for meth at [facility] Plan: - [place] on cessation - environmental services attendant consultation Health Maintenance Disposition: med surg DVT prophylaxis: heparin GI prophylaxis: not needed Diet: cardiac CODE STATUS: FULL Patient plan of care was discussed with the resident, Dr. Gonzalez, and attending physician, Dr. Luis. Uzma Figueroa, PGY-1 Attending Provider Attestation/Addendum I have examined the patient, reviewed labs and imaging findings, discussed the case with the resident(s), and reviewed entered orders. I agree with the plan of care as outlined in this note, with these additional summaries/recommendations: Patient seen at bedside. No acute overnight events. Patient was transferred back from [facility] yesterday evening. Per [facility] documentation patient underwent bone/tissue biopsy for suspected epidural abscess and osteomyelitis. Cultures returned negative although there is some documentation from [facility] stating they were unable to complete biopsy. We will follow-up with facility for clarification. Pending Kiras results. Patient was also diagnosed with latent TB although not started on treatment. Consult in-house infectious disease and we will attempt to contact [facility] ID as well. Nonetheless patient is improving and anticipate discharge in the next 24-48 hours. Continue home antihypertensives. Patient and family updated on the plan and in agreement. All questions answered to satisfaction. Dr. Toby MD
--- NOTE | 2025-06-27 12:50 | PC.SS ---
Follow up note: Transfer back from [facility]. PT consulting. Pt will return home upon dc.
--- NOTE | 2025-06-27 15:55 | PC.SS ---
SS met with patient regarding his d/c plan. Pt is alert/oriented. Pt was admitted for Epidural Inflammation. Pt confirmed demographic and contact information is correct on facesheet. Pt resides with . Pt uses a wheelchair. Pt requires assistance with all ADLs. helps care for pt at home. Pt was transfer back from [facility]. Patient?s pharmacy of choice is . Pt named his son, Artemio Burkett medical decision maker if he is unable. Patient?s choice is to return home upon d/c. Pt was positive for meth use on admissions and will require community resources. Pt sttes his brother, Pb, phone# [phone] can provide transportation home or Jennifer his niece, phone# [phone]. D/C plan: Return home Next of Kin: Artemio Burkett, son, phone# [phone] PCP: Dr. Zack Cheatham from [facility] in [place] Address: Correct on facesheet
[2025-06-28] VITALS: BP 131/75; PULSE 82; RESP 20; TEMP 37.1; O2SAT 100
[2025-06-28] MEDS: MELATONIN 3 MG TABLET PO (01:52)
[2025-06-28 04:00] VITALS: BP 135/82; PULSE 76; RESP 20; TEMP 37.2; O2SAT 93
[2025-06-28 05:16] VITALS: BP 135/82; PULSE 70
[2025-06-28 05:30] LABS: Basophils # (Auto) 0.1 Thou/mm3 (0.0-0.2); Basophils % (Auto) 1 % (0-2.5); Eosinophils # (Auto) 0.2 Thou/mm3 (0.0-0.5); Eosinophils % (Auto) 2 % (0-10); Hematocrit 28.8 % (41.0-53.0); Hemoglobin 9.1 g/dL (13.5-16.0); Immature Granulocytes Auto 0.03 Thou/mm3 (0.00-0.00); Lymphocytes # (Auto) 2.4 Thou/mm3 (1.0-4.8); Lymphocytes % (Auto) 28 % (10-50); Mean Corpuscular HGB Conc 31.6 g/dl (31.0-37.0); Mean Corpuscular Hemoglobin 26.8 pg (25.0-35.0); Mean Corpuscular Volume 85 fL (80-100); Monocytes # (Auto) 0.7 Thou/mm3 (0.0-0.8); Monocytes % (Auto) 8 % (0-12); Neutrophils # (Auto) 5.1 Thou/mm3 (1.8-7.7); Neutrophils % (Auto) 61 % (37-80); Nucleated Red Blood Cell # 0.00 Thou/mm3 (0.00-0.00); Nucleated Red Blood Cell % 0 /100 WBC (0); Platelet Count 410 Thou/mm3 (140-440); RDW Standard Deviation 43.1 fL (35.1-43.9); Red Blood Count 3.40 Miln/mm3 (4.50-5.90); White Blood Count 8.4 Thou/mm3 (3.8-10.6)
[2025-06-28 06:02] LABS: Alanine Aminotransferase 26 U/L (10-49); Albumin, Serum 3.8 gm/dL (3.5-5.0); Albumin/Globulin Ratio 1.3 (1.2-2.2); Alkaline Phosphatase 105 U/L (46-116); Anion Gap 8 (7-16); Aspartate Amino Transferase 19 U/L (0-34); BUN/Creatinine Ratio 11 Ratio (12-20); Bilirubin,Total 0.3 mg/dL (0.3-1.2); Blood Urea Nitrogen 18 mg/dL (9-23); Calcium 9.5 mg/dL (8.3-10.6); Calcium (Corrected) 9.7 mg/dL (8.5-10.1); Carbon Dioxide 25.8 mMol/L (20.0-31.0); Chloride 108 mMol/L (98-107); Creatinine (Component) 1.6 mg/dL (0.6-1.3); Estimated Creatinine Clearance 46.5 mL/min (>60); Globulin 2.9 gm/dL (2.3-3.5); Glucose 96 mg/dL (74-106); Osmolality,Calculated 285 (275-295); Potassium 4.3 mMol/L (3.4-5.1); Sodium 142 mMol/L (136-145); Total Protein 6.7 gm/dL (5.7-8.2); eGFR 50 See Note
[2025-06-28 07:44] VITALS: BP 118/86; PULSE 90; RESP 18; TEMP 36.3; O2SAT 95
[2025-06-28 09:20] VITALS: BP 118/86; PULSE 90
[2025-06-28] MEDS: NIFEdipine XL 30 MG TABCR 60 MG PO (09:20)
[2025-06-28] MEDS: HEPARIN SOD INJ 5000 UNIT/ML VIAL SC (09:21)
--- NOTE | 2025-06-28 11:18 | ESDS_ITS ---
Planned Discharge Date 06/28/25 DS: Providers Provider Date of admission: 06/27/25 15:21 Primary care physician: Physician No Primary/Family Admitting Provider: Abrahan Gomez MD Attending Provider on Admission: Kush Luis MD Consults: 06/26/25 18:20 Referral Physical Therapy Routine Comment: Physician Instructions: 06/27/25 08:41 Consult to Infectious Diseases Routine Comment: L5-S1 discitis, abscess Consulting Provider: Nacho Arce Attending Provider on DC: Kush Luis MD Discharging Provider: Uzma Figueroa DO DS: Diagnosis Problem List Completed Was Problem List Reviewed/Reconciled?: Yes Hospital Course Hospital Course Hospital course: Summary: Patient is a 54 year old male with past medical history of chronic back pain, hypertension, CKD, BPH, polysubstance use disorder who was admitted on 06/26 after he was transferred from [facility] ED to [facility] on 06/17 for epidural abscess and discitis of the L5-S1 region. Disc biopsy on 06/19 was negative for any growth, with pathology showing focal necrosis with no acute inflammation. Repeat MR of spine on 06/22 showed extensive circumfrential epidural enhancement; anterior paracentral space, no psoas abscess visualized No IR guided drainage of the abscess was completed as no abscess was found. Patient had short course of antibiotics but were discontinued due to lack of acute inflammation. ID at [facility] was not consulted as back pain was resolved upon return to [facility] and osteomyelitis was ruled out at this point. 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 Patient was ambulatory with FWW and independent with all ADLs, also discharged with diclofenac gel for knee pain. Recommended follow up [facility] ID specialist at [facility] for results of Karius test, cocci, and 16s/18s RNA. Patient was diagnosed with latent TB based on CXR findings, positive TB quantiferon, and negative AFB results. He reports he was untreated for TB and was discharged with 3 month course of rifampin and isoniazid. Discharge Recommendations: Please take isoniazid 900mg by mouth daily and rifampin 600mg by mouth daily for 3 months for latent TB infection (Note that rifampin can cause your urine to look orange) Please take Vitamin B6 tablet daily Use diclofenac 1% gel on left knee for pain Please follow-up with Infectious Disease doctors at [facility] Dr. Cook Follow-up with your Primary Care Provder within 1 week or follow-up at the [facility] [address] [place], [place] [id number] Continue all other home medications as prescribed If your symptoms worsen or if you develop new chest pain, shortness of breath, dizziness or problem urinating/defecating - please come back to the ED immediately. Hospital Diagnoses: #Osteomyelitis of lumbar spine #Primary hypertension #CKD stage IIIb #Normocytic Anemia #TB, latent #Polysubstance-use disorder Disposition: Safe discharge to home. Patient plan of care was discussed with the attending physician, Dr. Luis. Uzma Figueroa, PGY-1 Time Spent with Patient Time attestation: Total time spent providing and/or coordinating discharge services: Time spent: Greater than 30 minutes Exam Vital Signs Temp Pulse Resp BP Pulse Ox O2 Del Method 97.3 F 90 18 118/86 H 95 Room Air 06/28/25 07:44 06/28/25 09:20 06/28/25 07:44 06/28/25 09:20 06/28/25 07:44 06/28/25 07:44 Narrative Exam Physical Exam General: Awake and in no acute distress. Conversational and non-toxic appearing. HEENT: Normocephalic, atraumatic, mucous membranes moist. Heart: Regular rate and rhythm, normal S1 and S2, no murmurs. Lungs: Clear to auscultation with no wheezing or crackles. Abdomen: Soft, nondistended, nontender, positive bowel sounds. No guarding or rebound tenderness. Neurologic: Alert and oriented x3, no gross neurological deficit, and patient able to move all 4 extremities. Extremities: No edema. Skin: No rash or ecchymoses. Discharge Plan Plan Patient Disposition: HOME (Self Care) Patient condition on transfer: Stable Care Plan Goals: Please take isoniazid 900mg by mouth daily and rifampin 600mg by mouth daily for 3 months for latent TB infection (Note that rifampin can cause your urine to look orange) Please take Vitamin B6 tablet daily Use diclofenac 1% gel on left knee for pain Please follow-up with Infectious Disease doctors at [facility] Dr. Cook Follow-up with your Primary Care Provder within 1 week or follow-up at the [facility] [address] [place] [address] Continue all other home medications as prescribed If your symptoms worsen or if you develop new chest pain, shortness of breath, dizziness or problem urinating/defecating - please come back to the ED imme diately. Prescriptions/Referrals Prescriptions/Med Rec: New isoniazid 300 mg tablet 300 mg PO QDAY 30 Days Qty: 30 3RF pyridoxine (vitamin B6) 50 mg capsule 50 mg PO QDAY 30 Days Qty: 30 3RF rifampin 300 mg capsule 900 mg PO QDAY 30 Days Qty: 90 3RF diclofenac sodium 1 % gel 4 g topical QID 30 Days Qty: 100 0RF Rx Instructions: apply to single knee, ankle, foot; for foot includes sole/toes/top of foot Continued aspirin 81 mg tablet,delayed release (DR/EC) 81 mg PO DAILY nifedipine 60 mg tablet extended release 24hr 60 mg PO DAILY atorvastatin 20 mg tablet 20 mg PO DAILY hydralazine 10 mg tablet 10 mg PO TID cholecalciferol (vitamin D3) 125 mcg (5,000 unit) capsule 125 mcg PO QDAY Referrals: No Primary/Family,Physician [Primary Care Provider] Patient/Caregiver Discharge Instructions Education Materials: Medicine for Tuberculosis, Discharge Instructions for ... Print Language: Iraqi Stand Alone Forms: Kristi Award Info., Patient Portal Info Letter, Work/Release Restrictions Discharge Order Discharge Orders: Discharge (Routine); Ordered 06/28/25 Ordered By: Kofi Gonzalez Quality Discharge Quality Measures VTE prophylaxis Attestestation MD Attestation I have examined the patient, reviewed labs and imaging findings, discussed the case with the resident(s), and reviewed entered orders. I agree with the plan of care as outlined in this note, with these additional summaries/recommendations: Patient medically cleared for discharge. He was counseled extensively on the importance of following up with infectious disease specialist at [facility] for Kiraus results and further management of latent tuberculosis. We will send patient with latent TB treatment with close outpatient follow-up. If he is unable to be evaluated by [facility] infectious disease specialist and patient was advised he needs to be referred to ID. Patient showed understanding and all questions answered to satisfaction. Fall precautions discussed and strict return precautions. Follow-up with PCP within 5 to 7 days of discharge. Please see residents note for additional details and management. Dr. Toby MD
[2025-06-28 11:30] VITALS: BP 158/88; PULSE 76; RESP 18; TEMP 36.2; O2SAT 95
[2025-06-28 13:46] LABS: Cocci Serology, IgM Negative (Negative)
--- NOTE | 2025-06-28 13:49 | PC.SS ---
Mental Health Advanced Practice Nurse (MICHELLE) Li informed by Chintan that patient needed a FWW. SW ordered FWW through [facility].
[2025-06-29 13:58] LABS: Cocci Serology, IgG Negative (Negative)
== END 2025-06-28 12:55 | disposition home or self-care (01) ==
PROVIDERS: Admitting Provider Internal Medicine; Visit Provider Student in an Organized Health Care Education/Training Program
DX: M46.26 Osteomyelitis of vertebra, lumbar region (principal); G89.29 Other chronic pain; N40.0 Benign prostatic hyperplasia without lower urinary tract symptoms; I12.9 Hypertensive chronic kidney disease with stage 1 through stage 4 chronic kidney disease, or unspecified chronic kidney disease; N18.32 Chronic kidney disease, stage 3b; D63.1 Anemia in chronic kidney disease; M60.08 Infective myositis, other site; Z22.7 Latent tuberculosis
CPT/HCPCS: 36415; 80053; 82728; 83036; 83540; 83550; 85025; 85046; 86331; 86635; 94762; 96372; 97162; G0378; J1644; A9270